=== PATIENT | male | born 2000 | race Caucasian/White ===

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

== ENCOUNTER 2020-05-19 13:03 | Emergency (ER) | payer OTHER ==
[~2020-05-19] VITALS: Ht 167.6 cm; Wt 99.8 kg
[2020-05-19] MEDS ORDERED: LIDOCAINE 2% MDV 20ML VIAL SC ONE (13:30)
[2020-05-19 13:58] LABS: BASO % 0.3 % (0.0-1.0); EOS # 0.1 10^3/uL (0.0-0.5); EOS % 0.4 % (0.0-3.0); HEMATOCRIT 42.6 % (42.0-52.0); HEMOGLOBIN 14.6 g/dl (13.5-17.5); LYMPH # 1.7 10^3/uL (1.5-5.0); LYMPH % 12.4 % (24.0-44.0); MEAN CORPUSCULAR HEMOGLOBIN 30.4 pg (27.0-33.0); MEAN CORPUSCULAR HGB CONC 34.3 g/dl (32.0-36.5); MEAN CORPUSCULAR VOLUME 88.6 fl (80.0-96.0); MONO # 1.3 10^3/uL (0.0-0.8); MONO % 9.3 % (0.0-5.0); NEUTROPHILS # 10.8 10^3/uL (1.5-8.5); PLATELET COUNT, AUTOMATED 239 10^3/uL (150-450); RED BLOOD COUNT 4.81 10^6/uL (4.30-6.10); WHITE BLOOD COUNT 14.1 10^3/uL (4.0-10.0)
--- NOTE | 2020-05-19 14:14 | REPVR ---
PROCEDURE INFORMATION: Exam: XR Left Finger(s) Exam date and time: 05/19/2020 1:25 PM Age: 19 years old Clinical indication: Pain; Finger(s); Left; Additional info: Left fifth finger injury TECHNIQUE: Imaging protocol: XR Left fingers. Views: Minimum 2 views. COMPARISON: No relevant prior studies available. FINDINGS: Limitations: Evaluation is limited on the PA and lateral views due to the obliquity of the projections. Bones/joints: No acute fracture is identified. No dislocation. Soft tissues: Proximal 5th finger laceration. No radiopaque foreign body is identified. IMPRESSION: Proximal 5th finger laceration. Electronically signed by: Corey Kraus On 05/19/2020 14:14:17 PM
[2020-05-19] MEDS ORDERED: ISOVUE-370 76% 100ML VIAL As Ordered ONE (14:30)
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
[2020-05-19] MEDS ORDERED: KEFL500C17 PO (16:37)
[2020-05-19] MEDS ORDERED: CEPHALEXIN 500 MG CAP PO ONE (16:45)
[2020-05-19 16:52] VITALS: BP 137/65
== END 2020-05-19 17:01 | disposition home or self-care (01) ==
LOC: M ED 13:03
DX: S61.217A Laceration without foreign body of left little finger without damage to nail, initial encounter (principal); S40.022A Contusion of left upper arm, initial encounter; V86.95XA Unspecified occupant of 3- or 4- wheeled all-terrain vehicle (ATV) injured in nontraffic accident, initial encounter; Y92.410 Unspecified street and highway as the place of occurrence of the external cause
CPT/HCPCS: 12002; 36415; 73140; 74177; 80047; 85025; 99284; Q9967

== ENCOUNTER 2020-12-22 23:36 | Emergency (ER) | payer OTHER ==
[~2020-12-22] VITALS: Ht 167.6 cm; Wt 107.8 kg
[~2020-12-22 23:36] MED LIST: KEFL500C17 PO
[2020-12-23 01:43] VITALS: BP 143/76
== END 2020-12-23 02:36 | disposition home or self-care (01) ==
LOC: M ED 23:36
DX: H61.22 Impacted cerumen, left ear (principal)

== ENCOUNTER 2024-01-26 09:06 | Emergency (ER) | payer OTHER ==
[~2024-01-26] VITALS: Ht 167.6 cm; Wt 97.7 kg
[2024-01-26 09:22] VITALS: TEMP 98.8
[2024-01-26 10:04] LABS: HEMATOCRIT 47.1 % (42.0-52.0); HEMOGLOBIN 16.1 g/dl (13.5-17.5); MEAN CORPUSCULAR HEMOGLOBIN 31.2 pg (27.0-33.0); MEAN CORPUSCULAR HGB CONC 34.2 g/dl (32.0-36.5); MEAN CORPUSCULAR VOLUME 91.3 fl (80.0-96.0); PLATELET COUNT, AUTOMATED 219 10^3/uL (150-450); RED BLOOD COUNT 5.16 10^6/uL (4.30-6.10); WHITE BLOOD COUNT 7.6 10^3/uL (4.0-10.0)
[2024-01-26 10:20] VITALS: BP 148/84; O2SAT 96
[2024-01-26 10:30] LABS: AMPHETAMINES LEVEL URINE NEGATIVE (NEGATIVE); BARBITURATES URINE NEGATIVE (NEGATIVE); BENZODIAZEPINES URINE NEGATIVE (NEGATIVE); COCAINE METABOLITE URINE NEGATIVE (NEGATIVE); METHADONE URINE NEGATIVE (NEGATIVE); OPIATES URINE NEGATIVE (NEGATIVE); PHENCYCLIDINE URINE NEGATIVE (NEGATIVE)
[2024-01-26 10:31] LABS: ETHYL ALCOHOL (ETHANOL) 0.144 % (0.000-0.010)
[2024-01-26 10:32] LABS: SALICYLATE LEVEL < 3.0 MG/DL (<30)
[2024-01-26 10:33] LABS: ALBUMIN 4.2 G/DL (3.2-5.2); ALKALINE PHOSPHATASE 83 U/L (46-116); ALT/SGPT 55 U/L (7.0-40); AST/SGOT 35 U/L (<34); BILIRUBIN,DIRECT < 0.1 MG/DL (<0.4); BILIRUBIN,TOTAL 0.2 MG/DL (0.3-1.2); BLOOD UREA NITROGEN 24 MG/DL (9-23); CALCIUM LEVEL 9.7 MG/DL (8.5-10.1); CARBON DIOXIDE LEVEL 23 MMOL/L (20-31); CHLORIDE LEVEL 109 MMOL/L (98-107); CREATININE FOR GFR 0.79 MG/DL (0.70-1.30); GLOMERULAR FILTRATION RATE > 60.0 (>60); GLUCOSE, FASTING 104 MG/DL (60-100); POTASSIUM SERUM 3.8 MMOL/L (3.5-5.1); SODIUM LEVEL 143 MMOL/L (136-145); TOTAL PROTEIN 7.4 G/DL (5.7-8.2)
[2024-01-26 10:34] LABS: CANNABINOIDS URINE POSITIVE (NEGATIVE)
[2024-01-26] MEDS ORDERED: HOME MED LIST COMPLETE! XX SCH (12:45)
[2024-01-26] MEDS: FOLIC ACID 1MG TAB PO ONE (16:40)
[2024-01-26] MEDS: MULTIVITAMINS/MINERALS THERAP 1 TAB PO ONE (16:40)
[2024-01-26] MEDS: THIAMINE 100 MG TAB PO ONE (16:40)
== END 2024-01-26 17:22 | disposition home or self-care (01) ==
LOC: M ED 09:06
DX: F43.20 Adjustment disorder, unspecified (principal); F10.10 Alcohol abuse, uncomplicated

== ENCOUNTER 2025-09-05 07:18 | Emergency (ER) | payer OTHER, SELFPAY ==
[~2025-09-05] VITALS: Ht 167.6 cm; Wt 106.5 kg
[~2025-09-05 07:18] MED LIST changes: +HYDR-3713 PO
[2025-09-05] MEDS: LIDOCAINE 2% MDV 20 ML VIAL SC ONE (08:00)
[2025-09-05] MEDS: TETANUS/DIPHTH/ACEL. PERTUSSIS 0.5 ML SYR IM.IMMUN ONE (08:06)
[2025-09-05] MEDS ORDERED: CEPH500C PO (08:46)
[2025-09-05] MEDS: CEPHALEXIN 500 MG CAP PO ONE ×2 (09:12)
[2025-09-05 09:46] VITALS: BP 160/70; TEMP 98; O2SAT 97
== END 2025-09-05 10:25 | disposition home or self-care (01) ==
LOC: M ED 07:47
DX: S63.287A Dislocation of proximal interphalangeal joint of left little finger, initial encounter (principal); S61.217A Laceration without foreign body of left little finger without damage to nail, initial encounter; Y92.019 Unspecified place in single-family (private) house as the place of occurrence of the external cause; Y93.9 Activity, unspecified; Y99.9 Unspecified external cause status; W01.0XXA Fall on same level from slipping, tripping and stumbling without subsequent striking against object, initial encounter; I10 Essential (primary) hypertension; F10.10 Alcohol abuse, uncomplicated; Z79.2 Long term (current) use of antibiotics; Z23 Encounter for immunization